=== PATIENT | female | born 1995 | race African-American/Black ===

== ENCOUNTER 2017-04-30 12:46 | Emergency (ER) | payer SELFPAY ==
[~2017-04-30] VITALS: Ht 167.6 cm; Wt 57.0 kg
[~2017-04-30 12:46] MED LIST: CYCL-36 PO; DICL50 PO
[2017-04-30 12:48] VITALS: BP 115/68; PULSE 88; RESP 20; TEMP 99; O2SAT 100
--- NOTE | 2017-04-30 12:55 | PD ---
Physical Exam Date Seen by Provider: Apr 30, 2017 Time Seen by Provider: 12:51 Narrative 21 y/o female here with vaginal pain and discharge for the past 2 days. + dysuria. LMP March. No Nausea, Vomiting, or flank pain. Vital signs reviewed. Patient stable. Awaiting Bed placement. Urine and Urine sent. Data Data Last Documented VS Vital Signs Date Time Temp Pulse Resp B/P Pulse Ox O2 Delivery O2 Flow Rate FiO2 04/30/17 12:48 99.0 88 20 115/68 100 MDM Medical Record Reviewed: Yes Supervised Visit with MICHAEL: Yes Condition: Stable Jordan De La Garza Apr 30, 2017 12:55
[2017-04-30 13:18] LABS: BACTERIA, URINE FEW /hpf; BLOOD, URINE NEG (NEG); GLUCOSE,URINE NEG (NEG); KETONE, URINE NEG (NEG); MUCUS URINE FEW /lpf (OCC); NITRITE,URINE NEG (NEG); SQUAMOUS EPITHELIAL CELL URINE 4 /hpf (0-5); URINE COLOR YELLOW (YELLW/STRAW)
--- NOTE | 2017-04-30 16:35 | PD ---
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 Patient states that the pain is worse when fluids touch the vaginal mucosa. She denies fevers, chills, nausea, vomiting, abdominal pain, dysuria. She denies unprotected sexual activity. She denies risk of . LMP "last month." [facility] Past Medical History Immunizations Current: Yes ?: Not LMP: 03/2017 Social History Alcohol Use: Yes (OCCASIONALLY) Tobacco Use: No Substance Use: No Allergies-Medications (Allergen,Severity, Reaction): Coded Allergies: No Known Allergies (Unverified , 04/30/17) Reported Meds & Prescriptions Reported Meds & Active Scripts Active Bactrim DS (Sulfamethoxazole-Trimethoprim) 800-160 Mg Tab 1 Tab PO BID Metronidazole 500 Mg Tab 500 Mg PO QID 7 Days Review of Systems Except as stated in HPI: all other systems reviewed are Neg Physical Exam Narrative GENERAL: Well-nourished, well-developed, nontoxic-appearing black female in no acute distress. SKIN: Focused skin assessment warm/dry. HEAD: Normocephalic. EYES: No scleral icterus. No injection or drainage. NECK: Supple, trachea midline. No JVD or lymphadenopathy. CARDIOVASCULAR: Regular rate and rhythm without murmurs, gallops, or rubs. RESPIRATORY: Breath sounds clear and equal bilaterally. No accessory muscle use. GASTROINTESTINAL: Abdomen soft, non-tender, nondistended. Active bowel sounds. GENITOURINARY: Normal external genitalia without lesions or erythema. Vaginal vault without blood. Vaginal vault coated and thin, white drainage. Cervical os was closed. Thin white drainage emanating from the os. No cervical motion tenderness. Uterus nontender and nonenlarged. Bilateral adnexa TENDER without masses. MUSCULOSKELETAL: No cyanosis, or edema. BACK: Nontender without obvious deformity. No CVA tenderness. Data Data Last Documented VS Vital Signs Date Time Temp Pulse Resp B/P Pulse Ox O2 Delivery O2 Flow Rate FiO2 04/30/17 12:48 99.0 88 20 115/68 100 Orders Gc And Chlamydia Pcr (04/30/17 12:55) Ua Includes Microscopic (04/30/17 12:55) Ed Urine Pregnancytest Poc (04/30/17 12:55) Wet Prep Profile (04/30/17 17:09) Azithromycin Powd Pack (Zithromax Powd P (04/30/17 17:15) Ceftriaxone Inj (Rocephin Inj) (04/30/17 17:15) Lidocaine 1% Inj (50 Ml) (Xylocaine 1% I (04/30/17 17:15) Metronidazole (Flagyl) (04/30/17 18:15) Sulfamet-Trimeth Ds 800-160 Mg (Bactrim (04/30/17 18:30) Labs Laboratory Tests Test 04/30/17 04/30/17 13:00 17:00 Urine Color YELLOW Urine Turbidity HAZY Urine pH 7.0 Urine Specific [place] 1.026 Urine Protein 30 mg/dL Urine Glucose (UA) NEG mg/dL Urine Ketones NEG mg/dL Urine Occult Blood NEG Urine Nitrite NEG Urine Bilirubin NEG Urine Urobilinogen LESS THAN 2.0 MG/DL Urine Leukocyte Esterase LARGE Urine RBC 4 /hpf Urine WBC 14 /hpf Urine Squamous Epithelial 4 /hpf Cells Urine Bacteria FEW /hpf Urine Mucus FEW /lpf Chlamydia trachomatis DNA DETECTED (PCR) Neisseria gonorrhoeae DNA DETECTED (PCR) Clue Cells (Wet Prep) PRESENT Vaginal Trichomonas (Wet Prep) PRESENT Vaginal Yeast (Wet Prep) NONE SEEN MDM Medical Decision Making Medical Screen Exam Complete: Yes Emergency Medical Condition: Yes Differential Diagnosis GC versus chlamydia versus trichomoniasis versus vulvovaginal candidiasis versus trichomoniasis versus other Narrative Course 21 YO F presents to the ED for evaluation of "3 or 4" day history of vaginal pain and thin white discharge. She denies fevers, chills, nausea, vomiting, abdominal pain, dysuria. She denies unprotected sexual activity. She denies risk of . LMP "last month." Vitals reviewed. Physical exam reveals a nontoxic-appearing black female in no acute distress. Abdominal exam unremarkable. Pelvic exam reveals thin white discharge in the pelvic vault and emanating from the cervical os. Bilateral adnexal tenderness also noted. ED urine test noted. Wet prep positive for trichomoniasis and BV. Serology positive for gonorrhea and chlamydia. UA with large leukocyte esterase and 14 wbc's. Patient was administered IM Rocephin, by mouth azithromycin. She was prescribed Flagyl 500 mg twice a day 7 days and Bactrim DS twice a day 7 days. She was given strict instructions to abstain from sexual activity until test of cure performed at the health department. She was instructed to have all sexual partners screened and treated. She is instructed to take all medication as prescribed. She indicated understanding of instructions and is agreeable to the care plan. She is stable and discharged home. Diagnosis Primary Impression: Gonorrhea Additional Impressions: Chlamydia Trichomoniasis of vagina Bacterial vaginosis Urinary tract infection Qualified Code: N39.0 - Urinary tract infection without hematuria, site unspecified Referrals: Sonography Technician [facility] Dept. Patient Instructions: Bacterial Vaginosis (ED), Chlamydia (ED), General Instructions, Gonorrhea (ED), Trichomoniasis (ED), Urinary Tract Infection in Women (ED) Additional Instructions: NO SEXUAL ACTIVITY UNTIL EVALUATED BY THE [facility]. Take antibiotics as prescribed, even if her symptoms resolve. All sexual partners should be evaluated and treated at the health department. Follow-up with the health department and the vba programmer. Return to the ED for any urgent or emergent medical condition. Med/Other Pt SpecificInfo: Prescription(s) given Scripts Sulfamethoxazole-Trimethoprim (Bactrim DS)800-160 Mg Tab1 Tab PO BID #14 TAB Ref 0 Prov:Theodore Fuentes MD 04/30/17 Metronidazole 500 Mg [id number] Mg PO QID 7 Days Ref 0 Prov:Theodore Fuentes MD 04/30/17 Disposition: 01 DISCHARGE HOME Condition: Stable Trixie Diop Apr 30, 2017 16:35
[2017-04-30 16:52] LABS: CHLAMYDIA PCR DETECTED (NOT DETECT); NEISSERIA PCR DETECTED (NOT DETECT)
[2017-04-30] MEDS ORDERED: AZITHROMYCIN PWD FOR SUSP 1 GM PACKET PO ONE (17:15)
[2017-04-30] MEDS ORDERED: LIDOCAINE HCL 1% 50 ML VIAL IM ONE (17:15)
[2017-04-30] MEDS ORDERED: cefTRIAXone 250 MG VIAL IM ONE (17:15)
[2017-04-30] MEDS ORDERED: METR500T10 PO (18:11)
[2017-04-30] MEDS ORDERED: metroNIDAZOLE 500 MG TAB PO ONE (18:15)
[2017-04-30] MEDS ORDERED: SULFAMETHOXAZOLE-TRIMETHOPRIM DS 800-160 MG TAB PO ONE (18:30)
[2017-04-30] MEDS ORDERED: BACT800T5 PO (18:31)
[2017-04-30 18:46] VITALS: BP 112/62
== END 2017-04-30 18:51 | disposition home or self-care (01) ==
LOC: NEPD 12:46
DX: A54.9 Gonococcal infection, unspecified (principal); A74.9 Chlamydial infection, unspecified; A59.01 Trichomonal vulvovaginitis; N76.0 Acute vaginitis; B96.89 Other specified bacterial agents as the cause of diseases classified elsewhere; N39.0 Urinary tract infection, site not specified
CPT/HCPCS: 81001; 84703; 87210; 87491; 87591; 96372; 99284; J0696

== ENCOUNTER 2017-07-27 19:44 | Emergency (ER) | payer BC ==
[~2017-07-27 19:44] MED LIST changes: +BACT800T5 PO; -CYCL-36 PO; -DICL50 PO; +METR1TAB76 PO
[2017-07-27 19:47] VITALS: BP 143/62; PULSE 86; RESP 18; TEMP 98.3; O2SAT 100
--- NOTE | 2017-07-27 20:09 | PD ---
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 STATES NO ALLEVIATING / AGGRAVATING..... NO ABD PAIN/N/V/D/PADILLA/CP/ ALL NKDA DENIES PMHX DENIES PSHX PFSH Past Medical History Medical History: Denies Significant Hx Diminished Hearing: No Immunizations Current: Yes Tetanus Vaccination: Never Vaccinated Influenza Vaccination: Yes ?: Not LMP: jun 2017 : 0 Past Surgical History Surgical History: No Previous Surgery Social History Alcohol Use: Yes (OCCASIONALLY) Tobacco Use: No Substance Use: Yes (marjuanna) Allergies-Medications (Allergen,Severity, Reaction): Coded Allergies: No Known Allergies (Unverified Adverse Reaction, Unknown, 07/27/17) Reported Meds & Prescriptions Reported Meds & Active Scripts Active Diflucan (Fluconazole) 150 Mg Tab 150 Mg PO ONCE Review of Systems Except as stated in HPI: all other systems reviewed are Neg General / Constitutional: No: Fever Eyes: No: Visual changes HENT: No: Headaches Cardiovascular: No: Chest Pain or Discomfort Respiratory: No: Shortness of Breath Gastrointestinal: No: Abdominal Pain Genitourinary: Positive: Other (VAGINAL SPOTTING AND DISCHARGE) Musculoskeletal: No: Pain Skin: No Rash Neurologic: No: Weakness Psychiatric: No: Depression Endocrine: No: Polydipsia Hematologic/Lymphatic: No: Easy Bruising Physical Exam Narrative GENERAL: SKIN: Warm and dry. HEAD: Atraumatic. Normocephalic. EYES: Pupils equal and round. No scleral icterus. No injection or drainage. ENT: No nasal bleeding or discharge. Mucous membranes pink and moist. NECK: Trachea midline. No JVD. CARDIOVASCULAR: Regular rate and rhythm. RESPIRATORY: No accessory muscle use. Clear to auscultation. Breath sounds equal bilaterally. GASTROINTESTINAL: Abdomen soft, non-tender, nondistended. 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 No obvious deformities. NEUROLOGICAL: Awake and alert. No obvious cranial nerve deficits. Motor grossly within normal limits. Five out of 5 muscle strength in the arms and legs. Normal speech. PSYCHIATRIC: Appropriate mood and affect; insight and judgment normal. Data Data Last Documented VS Orders Orders Urinalysis - C+S If Indicated (07/27/17 20:09) Wet Prep Profile (07/27/17 20:09) Gc And Chlamydia Pcr (07/27/17 20:09) Ed Urine Pregnancytest Poc (07/27/17 20:09) Ed Discharge Order (07/27/17 20:17) Labs Laboratory Tests Test 07/27/17 20:00 Urine Collection Type CLEAN CATCH Urine Color YELLOW Urine Turbidity CLEAR Urine pH 6.0 Urine Specific [place] 1.023 Urine Protein NEG mg/dL Urine Glucose (UA) NEG mg/dL Urine Ketones NEG mg/dL Urine Occult Blood NEG Urine Nitrite NEG Urine Bilirubin NEG Urine Leukocyte Esterase TRACE Urine WBC 3-5 /hpf Urine Squamous Epithelial Cells 0-5 /hpf Microscopic Urinalysis Comment CULT NOT INDICATED Urine Collection Time 2000 Clue Cells (Wet Prep) NONE SEEN Vaginal Trichomonas (Wet Prep) NONE SEEN Vaginal Yeast (Wet Prep) NONE SEEN Chlamydia trachomatis DNA (PCR) NOT DETECTED Neisseria gonorrhoeae DNA (PCR) NOT DETECTED MDM Medical Decision Making Medical Screen Exam Complete: Yes Emergency Medical Condition: Yes Medical Record Reviewed: Yes Differential Diagnosis GC V CHLAM V TRICH V TATYANA Narrative Course patient on evaluation did not find any e/o gc, chlam, trich or bacterial vaginosis present clinically. will d/c on yeast medicine. pt advised to f/u with pcp or director of public safety Diagnosis Primary Impression: TATYANA CERVICITIS Patient Instructions: General Instructions, Vulvovaginal Candidiasis (ED) Scripts Fluconazole (Diflucan) 150 Mg Tab 150 MG PO ONCE for Infection, #1 TAB 0 Refills Prov: Raleigh Green MD 07/27/17 Disposition: 01 DISCHARGE HOME Condition: Stable Raleigh Green MD Jul 27, 2017 20:09
[2017-07-27] MEDS ORDERED: DIFL150T PO (20:17)
[2017-07-27 20:36] LABS: BLOOD, URINE NEG (NEG); GLUCOSE,URINE NEG (NEG); KETONE, URINE NEG (NEG); NITRITE,URINE NEG (NEG)
[2017-07-27 20:54] LABS: METHOD OF COLLECTION CLEAN CATCH; URINE COLOR YELLOW (YELLW/STRAW)
[2017-07-27 20:55] LABS: COMMENT (UR) CULT NOT INDICATED; CULTURE IF INDICATED CULT NOT INDICATED; SQUAMOUS EPITHELIAL CELL URINE 0-5 /hpf (0-5)
[2017-07-28 03:07] LABS: CHLAMYDIA PCR NOT DETECTED (NOT DETECT); NEISSERIA PCR NOT DETECTED (NOT DETECT)
== END 2017-07-27 21:00 | disposition home or self-care (01) ==
LOC: PHED 19:44
DX: N72 Inflammatory disease of cervix uteri (principal); B37.3 Candidiasis of vulva and vagina
CPT/HCPCS: 81001; 84703; 87210; 87491; 87591; 99284